=== PATIENT | female | born 1950 | race Caucasian/White ===

== ENCOUNTER 2022-02-21 13:30 | Outpatient (CLI) | payer MEDICARE | END 2022-02-21 13:31 | disposition home or self-care (01) | LOC: SCSMRI 13:30 | PROVIDERS: ATTEND Surgery | DX: M47.26 Other spondylosis with radiculopathy, lumbar region (principal); M48.062 Spinal stenosis, lumbar region with neurogenic claudication; M41.9 Scoliosis, unspecified; M51.36 Other intervertebral disc degeneration, lumbar region | CPT/HCPCS: 72120; 72148 ==

== ENCOUNTER 2022-10-13 16:29 | Outpatient (CLI) | payer MEDICARE ==
[2022-10-13 17:22] LABS: Hemoglobin 13.3 g/dL (12.0-15.5); Mean Corpuscular HGB CONC 33.3 g/dL (32.0-36.0); Mean Corpuscular Hemoglobin 28.8 pg (27.0-33.0); Mean Corpuscular Volume 86.6 fl (81.6-98.3); Mean Platelet Volume 9.7 fl (7.4-10.4); Platelet Count 197 10x3/uL (150-450); RBC Distribution Width 11.6 % (11.5-14.5); Red Blood Cell (RBC) Count 4.62 10x6/uL (3.90-5.03); White Blood Cell (WBC) Count 8.4 10x3/uL (3.5-10.5)
[2022-10-13 17:38] LABS: INR-International Normal Ratio 1.1; Prothrombin Time 11.3 sec (9.5-12.1)
[2022-10-13 17:42] LABS: Anion Gap 14 mmol/L (10-20); BUN (Urea Nitrogen) 8 mg/dL (9.8-20.1); Calc. Creatinine Clearance 0 mL/min (70-130); Calcium 9.1 mg/dL (7.8-10.44); Carbon Dioxide 22 mmol/L (23-31); Chloride 107 mmol/L (98-107); Estimated GFR 71; Glucose 113 mg/dL (83-110); Potassium 3.1 mmol/L (3.5-5.1); Sodium 140 mmol/L (136-145)
== END 2022-10-13 16:30 | disposition home or self-care (01) ==
LOC: LABBT 16:29
PROVIDERS: ATTEND Surgery
DX: Z01.818 Encounter for other preprocedural examination (principal); M48.062 Spinal stenosis, lumbar region with neurogenic claudication
CPT/HCPCS: 80048; 85027; 85610; 85730; 93005; 93010

== ENCOUNTER 2022-10-14 06:13 | Observation (INO) | payer MEDICARE ==
[2022-10-13 17:02] VITALS: BMI 25.8
[2022-10-14] MEDS ORDERED: Thrombin 5000 UNITS/5 ML VIAL ONE ×2 (06:44→09:32)
[2022-10-14] MEDS ORDERED: Vancomycin 1 GM VIAL ONE (06:44)
[2022-10-14] MEDS ORDERED: Sodium Chloride 0.9% 100 ML ONE (07:10)
[2022-10-14] MEDS ORDERED: CEFAZOLIN 2 GM VIAL ONE (07:10)
[2022-10-14] MEDS ORDERED: fentaNYL PF 100 MCG/2 ML SYRINGE ONE ×2 (07:17)
[2022-10-14] MEDS ORDERED: SUGAMMADEX SODIUM 200 MG/2 ML VIAL ONE (07:18)
[2022-10-14] MEDS ORDERED: Dexamethasone 20 MG/5 ML VIAL ONE (07:42)
[2022-10-14] MEDS ORDERED: ePHEDrine Sulfate 50 MG/10 ML VIAL ONE (07:42)
[2022-10-14] MEDS ORDERED: PROPOFOL 200 MG/20 ML VIAL ONE (07:42)
[2022-10-14] MEDS ORDERED: Ondansetron PF 4 MG/2 ML Vial ONE (07:42)
[2022-10-14] MEDS ORDERED: Lidocaine 1% PF 5 ML VIAL ONE (07:42)
[2022-10-14] MEDS ORDERED: HYDROmorphone 0.5 MG/0.5 ML SYRINGE ONE ×4 (10:51→11:53)
[2022-10-14] MEDS ORDERED: HYDROcodone/Acetaminophen 7.5/325 mg Tablet PO PRN (10:52)
[2022-10-14] MEDS ORDERED: traMADol HCl 50 MG TAB PO PRN (10:52)
[2022-10-14] MEDS ORDERED: Morphine 2 MG/ML VIAL SLOW IVP PRN (10:52)
[2022-10-14] MEDS ORDERED: Acetaminophen 325 MG TAB PO PRN (10:52)
[2022-10-14] MEDS ORDERED: diphenhydrAMINE 25 MG CAP PO PRN (10:52)
[2022-10-14] MEDS ORDERED: hydrALAZINE 20 MG/ML VIAL SLOW IVP PRN (10:59)
[2022-10-14] MEDS ORDERED: tiZANidine HCl 4 MG TAB PO PRN (10:59)
[2022-10-14] MEDS ORDERED: CEFAZOLIN 2 GM in Sodium Chloride 0.9% 100 ML IVPB SCH ×2 (11:00→21:00)
[2022-10-14] MEDS ORDERED: HYDROmorphone 2 MG/ML VIAL SLOW IVP PRN (11:00)
[2022-10-14] MEDS ORDERED: Non-Formulary Medication 1 EACH PO PRN (11:00)
[2022-10-14] MEDS ORDERED: Ondansetron HCl/PF 4 MG/2 ML Vial IVP PRN (11:00)
[2022-10-14] MEDS ORDERED: Promethazine HCl 25 MG/ML VIAL IM/IV PRN (11:00)
[2022-10-14] MEDS ORDERED: fentaNYL 50 mcg/mL 1 mL Vial SLOW IVP PRN (11:01)
[2022-10-14] MEDS ORDERED: Nitroglycerin 0.4 MG TAB (25 Tab Bottle) SL PRN (11:02)
[2022-10-14] MEDS ORDERED: Furosemide 20 MG TAB PO PRN (11:02)
[2022-10-14] MEDS ORDERED: fentaNYL 50 mcg/mL 1 mL Vial ONE (11:05)
[2022-10-14] MEDS ORDERED: Meclizine HCl 25 MG TAB PO PRN (12:00)
[2022-10-14] MEDS ORDERED: Simethicone Chewable 80 MG TAB PO PRN (12:02)
[2022-10-14] MEDS: Sodium Chloride 0.9% 1,000 ML IV SCH (13:16)
[2022-10-14] MEDS: tiZANidine HCl 4 MG TAB PO PRN (15:57)
[2022-10-14] MEDS: Ketorolac Tromethamine 30 MG/ML VIAL IVP PRN (15:57)
[2022-10-14] MEDS: Acetaminophen/Codeine 30-300mg Tablet PO PRN (18:26)
[2022-10-15] MEDS: Sodium Chloride 0.9% 1,000 ML IV SCH (02:10)
[2022-10-15 06:57] LABS: Anion Gap 16 mmol/L (10-20); BUN (Urea Nitrogen) 7 mg/dL (9.8-20.1); Calc. Creatinine Clearance 50 mL/min (70-130); Calcium 9.1 mg/dL (7.8-10.44); Carbon Dioxide 23 mmol/L (23-31); Chloride 107 mmol/L (98-107); Estimated GFR 64; Glucose 141 mg/dL (83-110); Potassium 3.8 mmol/L (3.5-5.1); Sodium 142 mmol/L (136-145)
[2022-10-15] MEDS ORDERED: Lisinopril 20 MG TAB PO SCH (09:00)
[2022-10-15] MEDS ORDERED: Cholecalciferol 1,000 UNITS (25 MCG) TAB PO SCH (09:00)
[2022-10-15] MEDS ORDERED: Multivitamin w/Zinc Stress 1 TAB PO SCH (09:00)
[2022-10-15] MEDS ORDERED: Citalopram 20 MG TAB PO SCH (09:00)
[2022-10-15] MEDS ORDERED: Atorvastatin Calcium 10 MG TAB PO SCH (09:00)
[2022-10-15] MEDS: Acetaminophen/Codeine 30-300mg Tablet PO PRN ×2 (09:43)
[2022-10-15] MEDS: tiZANidine HCl 4 MG TAB PO PRN (12:29)
[2022-10-15] MEDS: Ketorolac Tromethamine 30 MG/ML VIAL IVP PRN (12:34)
[2022-10-15 12:49] VITALS: BP 128/71; TEMP 98.2
== END 2022-10-15 15:00 | disposition home or self-care (01) ==
LOC: SDC 06:13 → SURG A 11:02
PROVIDERS: ADMIT Surgery; ATTEND Surgery
PROC: 00NY0ZZ Release Lumbar Spinal Cord, Open Approach (ICD-10-PCS; principal; 2022-10-14)
DX: M48.062 Spinal stenosis, lumbar region with neurogenic claudication (principal); M41.9 Scoliosis, unspecified; Z98.1 Arthrodesis status
CPT/HCPCS: 63047; 63048; 80048; C1889; J3010; 36415; J1100; J1170; J1885; J2405; J2704; J3370; J3490; J7050